=== PATIENT | female | born 1940 | race Caucasian/White ===

== ENCOUNTER 2017-02-05 19:15 | Inpatient (IN) | payer MEDICARE, OTHER ==
[~2017-02-05] VITALS: Ht 165.1 cm; Wt 65.4 kg
[2017-02-05 19:18] VITALS: BP 124/74; PULSE 97; RESP 16; O2SAT 94
[2017-02-05] MEDS ORDERED: 0.9% Sodium Chloride 500 ML IV ONE (19:50)
[2017-02-05 19:55] LABS: BASOPHILS % (AUTO) 0.3 % (0-3)
--- NOTE | 2017-02-05 19:55 | DRSVH ---
PROCEDURE: X-RAY CHEST ONE VIEW, PORTABLE ([id number]) INDICATIONS: shortness of breath, cough TECHNIQUE: One view of the chest was acquired. COMPARISON: None. FINDINGS: Surgical changes and devices: None. Lungs and pleura: No pleural effusions or pneumothorax. Lungs are clear. Mediastinum: Mediastinal contours appear normal. Heart size is normal. Bones and chest wall: No suspicious bony lesions. Overlying soft tissues appear unremarkable. IMPRESSION: Mild hyperexpansion suggestive of COPD. No acute pulmonary process. Dictated by: Cheryl Ko M.D. on 02/05/2017 at 19:53 Approved by: Cheryl Ko M.D. on 02/05/2017 at 19:53
[2017-02-05 19:56] LABS: EOSINOPHILS % (AUTO) 1.2 % (0-5); MONOCYTES % (AUTO) 6.3 % (4-12); Mean Corpuscular Hemoglobin 27.4 pg (27.0-35.0); Mean Corpuscular Volume 83.3 fL (81-100); NEUTROPHILS % (AUTO) 80.3 % (40-74); Platelet Count 56 bil/L (150-400)
[2017-02-05] MEDS ORDERED: Albuterol 2.5 mg/3 mL Inhalation Solution NEB ONE (20:05)
[2017-02-05] MEDS ORDERED: MethylprednisoLONE Sodium Succinate 62.5 mg/mL 2 mL Inj IVPUSH ONE (20:10)
[2017-02-05] MEDS ORDERED: Albuterol-Ipratropium 3 mL Inhalation Solution NEB ONE (20:10)
[2017-02-05] MEDS ORDERED: Piperacillin-Tazo 3.375 Gm Inj 3.375 GM in Dextrose 5% Minibag Plus 50 ML IV ONE (20:10)
[2017-02-05 20:18] VITALS: PULSE 93; RESP 13; O2SAT 96
--- NOTE | 2017-02-05 20:19 | ED.REPORT ---
HPI-Dyspnea / Wheezing Date of Service Feb 05, 2017 ED Provider: Santo Arango PA-C Ailin is a 77-year-old female with a history of memory issues, high blood pressure and hypothyroidism who presents to the emergency department with a chief complaint cough. The patient's daughter reports a one-week history of worsening productive cough, lethargy fatigue, fever, nasal congestion. Fever noted to be 101F at the urgent care prior to arrival. Denies chest pain, palpitations. Denies a history of asthma, COPD. Denies recent hospitalizations. Nursing Notes Stated Complaint: FEVER,COUGH,CONGESTION,SENT BY URGENT CARE Chief Complaint: Respiratory Complaints Nursing Notes Reviewed: Yes Allergies: Coded Allergies: latex (Verified Allergy, Severe, rash and hives, 02/05/17) General Time Seen by MD: 19:34 Chief Complaint Cough Past Medical History Past Medical History Hypothyroid, memory issues, high blood pressure Reports: Hypertension Past Surgical History Unknown Family History Noncontributory Smoking History Never Smoker Social History Pt lives alone at [facility] and has a weekly maid. She recently moved from [place], [place] to be closer to her family. Drug Use: Denies drug use Other Social History: Lives alone Ambulatory Status Independent Review of Systems General: Admits fever, chills, malaise. HEENT: Admits congestion Respiratory: Admits dyspnea, cough, shortness of breath, wheezing. Cardiovascular: Denies chest pain, palpitations. Gastrointestinal: Denies vomiting, diarrhea, abdominal pain. Otherwise as noted in HPI. Physical Exam General: Well appearing, well developed, well nourished, no acute distress. Head: Atraumatic, normocephalic. Eyes: No scleral icterus or injection. No discharge. Vision grossly intact. ENT: Voice clear, hearing grossly intact. Respiratory: Mild tachypnea. Diffuse expiratory wheezes in all adames. Negative rales or rhonchi. Cardiovascular: Regular rate and rhythm. 3/6 systolic murmur most prominent at the left upper sternal border. No pedal edema. Gastrointestinal: Abdomen flat and non-tender without guarding or rebound. Bowel sounds normoactive. Skin: Warm and dry. Neurological: Grossly nonfocal. Psychological: Alert and oriented. Speech appropriate, linear and logical. Behavior appropriate. Initial Vital Signs Vital Signs (First) Date Time Temp Pulse Resp B/P Pulse Ox O2 Delivery O2 Flow Rate FiO2 02/05/17 19:18 37.3 97 16 124/74 94 Room Air 02/05/17 20:18 1 Normal Interpretation & Diagnostics Lab Results Interpretation Result Diagram: 02/05/17193902/05/171939 Test 02/05/17 19:40 White Blood Count 14.8th/mm3 (3.8-10.1) Red Blood Count 4.92mil/mm3 (3.90-5.20) Hemoglobin 13.5g/dL (12.0-15.6) Hematocrit 41.0% (35.0-46.0) Mean Corpuscular Volume 83.3fL (81-100) Mean Corpuscular Hemoglobin 27.4pg (27.0-35.0) Mean Corpuscular Hemoglobin Concent 32.9% (32.0-37.0) Red Cell Distribution Width 16.5% (12.3-15.4) Platelet Count 56bil/L (150-400) Neutrophils (%) (Auto) 80.3% (40-74) Lymphocytes (%) (Auto) 11.6% (14-46) Monocytes (%) (Auto) 6.3% (4-12) Eosinophils (%) (Auto) 1.2% (0-5) Basophils (%) (Auto) 0.3% (0-3) Hematology Comments Platelet Sodium Level 133mEq/L (134-144) Potassium Level 4.5mEq/L (3.5-5.2) Chloride Level 95mEq/L (97-108) Carbon Dioxide Level 25mmol/L (18-29) Blood Urea Nitrogen 13mg/dL (8-27) Creatinine 0.59mg/dL (0.57-1.00) Estimat Glomerular Filtration Rate 141mL/min (>59) Glucose Level 159mg/dL (60-99) Lactic Acid Level 1.2mmol/L (0.4-2.0) Calcium Level 10.2mg/dL (8.5-10.1) Magnesium Level 1.7mg/dL (1.6-2.6) Total Bilirubin 1.9mg/dL (0.0-1.2) Aspartate Amino Transf (AST/SGOT) 19U/L (0-50) Alanine Aminotransferase (ALT/SGPT) 20U/L (0-32) Alkaline Phosphatase 121U/L (25-165) Troponin T < 0.010ug/L (0.0-0.011) Total Protein 7.8g/dL (6.4-8.4) Albumin 4.3g/dL (3.4-5.0) ECG Interpretation ECG Interpretation: Sinus rhythm with a rate of 92 and regular. Probable left atrial enlargement, right bundle branch block. No ischemic changes Time: 19:32 Interpreted by: ED physician (Dr. Morfin) Re-Eval/Medical Decision Med Decision/Clinical Course 77-year-old female with a history of memory issues, hypothyroid, high blood pressure presents emergency Department with worsening productive cough, fever, fatigue over the last week. Febrile to 101F. Denies hospitalizations, is a resident at an assisted living facility. Physical examination reveals an ill-appearing elderly woman, clinically evident wet cough. Diffuse bilateral expiratory wheezes. 3/6 murmur most prominent at the left upper sternal border. Vital signs in triage are normal. O2 saturation is 95% on 1 L of O2. X-rays reveal a COPD pattern with no obvious pneumonia.CBC reveals leukocytosis at 14.8 with left shift. Platelets are low at 56. CMP reveals mild hypochloremia at 95, , hyponatremia 133, hypercalcemia at 10.2 and elevated bilirubin of 1.9. Troponin is negative. Lactic acid is normal. EKG reveals sinus rhythm, left atrial enlargement, right bundle branch block and is negative for ischemic changes. Flu swab performed at urgent care was negative. I discussed the case with who recommends blood cultures, IV steroids, Zosyn to cover hospital acquired pneumonia, DuoNeb 3, admission. Patient feels significant improved after DuoNeb. I discussed the case with Dr. Mitchell, who accepts admission. Patient is transferred to the floor in stable condition. Consultation : Referral / Consult Name: Madonna Mitchell DO Call Returned at: 20:17 Personal Chef: Accepts admit Discharge & Departure Impression: Primary Impression: COPD exacerbation Additional Impression: Thrombocytopenia Disposition: ADMITTED TO HOSPITAL Discharge Condition All VS Reviewed: Yes Condition: Stable Referrals: Sundar Godwin MD (PCP) copies to: Sundar Godwin MD, Seth PA-C Feb 05, 2017 20:19
[2017-02-05 20:32] LABS: Magnesium 1.7 mg/dL (1.6-2.6)
[2017-02-05 20:38] LABS: TROPONIN T < 0.010 ug/L (0.0-0.011)
[2017-02-05 20:45] VITALS: BP 110/51; PULSE 110; RESP 16; O2SAT 95
[2017-02-05] MEDS ORDERED: Alum-Mag Hydrox-Simeth 30 mL Suspension PO PRN ×2 (20:45→21:40)
[2017-02-05] MEDS ORDERED: Ondansetron 2 mg/mL 2 mL Inj IVPUSH PRN (20:45)
[2017-02-05 21:28] VITALS: BP 96/58; PULSE 110; RESP 16; O2SAT 95
[2017-02-05] MEDS ORDERED: Polyethylene Glycol (PEG) 17 Gm Powder PO PRN (21:40)
[2017-02-05] MEDS ORDERED: Albuterol 2.5 mg/3 mL Inhalation Solution NEB PRN (21:40)
--- NOTE | 2017-02-05 22:00 | NUR ---
Patient arrived from ED at 2140 to RM 3011, accompanied by daughter. Patient has baseline memory deficits. Lives at [facility] during weekdays, stays with daughter on weekends. Pt cooperative but anxious and emotional about hospital stay and startles easily when waking. Occasionally asks repetitive questions. Bed alarm on.
[2017-02-05 22:08] VITALS: BP 104/62; PULSE 103; RESP 18; O2SAT 94
--- NOTE | 2017-02-05 22:10 | PCM.HPMED ---
Subjective Date of Service Feb 05, 2017 Primary Provider: Admitting Physician: Madonna Mitchell DO Primary Care Physician: Sundar Godwin MD Attending Physician: Madonna Mitchell DO Chief Complaint: Cough and fever and generalized malaise History of Present Illness: Ailin Gibson is a 77-year-old female with past medical history significant for hypothyroidism, hypertension, hyperlipidemia, and significant secondhand smoke exposure who presents with fever of 101F, productive cough, and generalized malaise. Patient states that over the last week she has developed a cough that has become more productive. She states that sputum is mostly opaque but occasionally is green in color. She is also had increased fatigue and generalized malaise. Today symptoms worsened and she developed a fever of 101 F recorded at urgent care. Urgent care recommended she present to the ED for further evaluation. Patient currently resides at [facility] and lives independently. Fellow residents have had some upper respiratory symptoms but no hospitalizations that she is aware of. She denies any abdominal pain, nausea , vomiting, dysuria, hematuria, diarrhea, headache, chest pain, or dizziness. On presentation to the ED vital signs were 36.4 (patient received Tylenol at urgent care), pulse 60, respiratory rate 16, blood pressure 173/79, and satting 98 % on room air. Chest x-ray was suggestive of COPD with no definitive infiltrate. Influenza swab at urgent care was negative. In the ED patient received 500 mL of normal saline, DuoNeb, Zosyn, and Solu-Medrol 125 mg IV. Review of Systems: Comprehensive review of systems was conducted with the patient and found to be negative except as noted above in HPI. Allergies Coded Allergies: latex (Verified Allergy, Severe, rash and hives, 02/05/17) Home Medications Metoprolol Statin Levothyroxine PMH Hypothyroidism Hypertension Hyperlipidemia Possibly early stages of dementia - not diagnosed by family members state she is more forgetful Surgical History Cholecystectomy Hysterectomy Family History Father - Parkinson's Mother - heart disease Social History Occupation: retired or tech Hx Alcohol Use: No Hx Substance Use: No Hx Tobacco Use: No (significant secondhand smoke exposure) Smoking Status: Never Smoker Living Arrangement: Independent Care Home Exam Vital Signs Vital Sign - Last Date Time Temp Pulse Resp B/P Pulse Ox O2 Delivery O2 Flow Rate FiO2 02/05/17 21:28 110 16 96/58 95 Nasal Cannula 1 02/05/17 19:18 37.3 Exam General: Lethargic elderly woman lying in bed in mild distress. Appropriately interactive when directly questioned. HEENT: Normocephalic, atraumatic. External ears without defect. Pupils equal, round, and reactive to light and accommodation. Anicteric sclerae, moist conjunctivae, and no lid lag. Moist oral mucosa. Neck: Supple with full range of motion. No jugular venous distension. Cardiovascular: Regular rate and rhythm with a 3/6 systolic murmur. Pulmonary: Coarseness greatest in right upper lung field with diffuse wheezing. Abdomen: Bowel tones present. Soft, nontender, nondistended. Extremities: No clubbing, cyanosis, edema, or lymphadenopathy appreciated. Skin: Normal temperature, turgor, and texture; no rash, ulcers, or subcutaneous nodules appreciated. Neurological: Cranial nerves grossly intact. Normal muscle strength, tone, and bulk. Reflexes, coordination, and sensory function within normal limits. No known gait impairment. Psychiatric: Normal mood and affect. Alert and oriented to person, place, and time. Lab and Diagnostics Result Diagram: 02/05/17193902/05/171939 X-Rays, CTs and MRIs X-RAY CHEST ONE VIEW, PORTABLE IMPRESSION: Mild hyperexpansion suggestive of COPD. No acute pulmonary process. Dictated by: Cheryl Ko M.D. on 02/05/2017 at 19:53 Approved by: Cheryl Ko M.D. on 02/05/2017 at 19:53 12-lead ECG Sinus rhythm with heart rate of 92 Right bundle branch block Assessment & Plan Ailin Gibson is a 77-year-old female with past medical history significant for hypothyroidism, hypertension, hyperlipidemia, and significant secondhand smoke exposure who presents with fever of 101F, productive cough, and generalized malaise. Admitted for possible URI versus CAP in the setting of likely COPD although no previous diagnosis. Upper respiratory infection versus community acquired pneumonia, present on admission, active. - Chest x-ray with no definitive infiltrate. Repeat in the morning as physical exam reveals significant coarseness in the right upper lung field. - Zosyn and steroids given in the ED. Steroids discontinued and antibiotics switched to azithromycin and ceftriaxone. - Leukocytosis of 14.8 with a neutrophil predominance. Procalcitonin pending. - Blood and sputum cultures obtained and results pending. - Respiratory PCR panel, strep pneumonia, and legionella ordered and pending. - Supplemental oxygen as needed. - Duonebs as needed for shortness of breath. - Repeat CBC and procalcitonin in the morning. Possible acute COPD exacerbation, presently on admission, active. - Patient has no prior diagnosis of COPD although she has a long history of secondhand smoke exposure. No personal history of tobacco use. Chest x-ray suggestive of COPD. - Supplemental oxygen as needed. - DuoNebs Q4-6H while awake. - Solu-Medrol 125 mg given in the ED. Continue with Prednisone 40mg QD for 4 days. - Albuterol Q2H PRN. - Antibiotics and laboratory workup as above. Thrombocytopenia, present on admission, active. - On admit platelets 56. Labs from 08/19/2016 showed platelet level of 85. - Patient unaware of this condition. No prior records to compare. - Further workup as outpatient. - We will continue to monitor. - DVT prophylaxis with heparin held. Systolic murmur, present on admission, active. - Patient has not had an echocardiogram and was not aware of heart murmur. - As patient's blood pressure has become somewhat tenuous and there might be need for more aggressive fluid resuscitation echocardiogram has been ordered for the morning. Chronic stable conditions Hypothyroidism - Continue home medication: Levothyroxine 100 MCG daily. Hypertension - Hold home Metoprolol at this time as patient's blood pressure is somewhat tenuous. Hyperlipidemia - Atorvastatin held. PRN Medications - Acetaminophen as needed for mild pain/fever/headache - Bowel regimen as needed - Antiemetic as needed Patient is admitted under inpatient status with expected length of stay greater than 2 midnights due to severity of presenting symptoms, risk of adverse event, and complexity of treatment plan. Pain Evaluation: Adequate Pain Control GI Prophylaxis: Not indicated VTE Prophylaxis Indicated: Contraindicated (platelets of 56) VTE Prophylaxis: SCDs VTE Mechanical Devices: Intermittant Pneumatic CD Resuscitation Status: CPR: Attempt Resuscitation Attending Statement The patient was seen and examined together with house staff on 02/05/2017 and I agree with the history, exam and plan as outlined in the note above. SADI NEWMAN DO Feb 05, 2017 22:10 Madonna Mitchell DO Feb 06, 2017 04:27
[2017-02-05] MEDS: 0.9% Sodium Chloride 1,000 ML IV SCH (22:36)
[2017-02-05 22:42] LABS: APPEARANCE,URINE CLEAR (CLEAR,HAZY); COLOR,URINE YELLOW (YELLOW)
[2017-02-05 22:43] LABS: OCCULT BLOOD,URINE TRACE (NEGATIVE); UROBILINOGEN,URINE NORMAL (NORMAL)
[2017-02-06] VITALS (13 sets, daily range): BP systolic 105–125; BP diastolic 58–68; PULSE 85–119; RESP 18–22; O2SAT 93–97
[2017-02-06] MEDS ORDERED: ALBU8.5H2 INHALATION (00:13)
[2017-02-06] MEDS ORDERED: METO-369 PO (00:13)
[2017-02-06] MEDS ORDERED: ATOR20TA PO (00:13)
[2017-02-06] MEDS ORDERED: ASPI-973 PO (00:13)
[2017-02-06] MEDS ORDERED: LEVO100T97 PO (00:13)
[2017-02-06] MEDS ORDERED: LATA2.5D6 OP (00:13)
[2017-02-06] MEDS ORDERED: Heparin 5,000 Unit/mL Inj SUBQ SCH (00:30)
[2017-02-06] MEDS: Albuterol-Ipratropium 3 mL Inhalation Solution NEB SCH ×4 (00:54→11:28)
--- NOTE | 2017-02-06 06:08 | NUR ---
Respiratory Patient states she is feeling better than when she came into the hospital, able to sleep part of the night. Baseline confusion to date and situation, anxious and startles easily. 1L O2/NC, coughing less frequently. Last tylenol given in urgent care. Plan for Echo this AM.
[2017-02-06 06:46] LABS: BASOPHILS % (AUTO) 0 % (0-3); EOSINOPHILS % (AUTO) 0.1 % (0-5); Mean Corpuscular Hemoglobin 27.4 pg (27.0-35.0); Mean Corpuscular Volume 85.7 fL (81-100); NEUTROPHILS % (AUTO) 94.3 % (40-74)
[2017-02-06 06:55] LABS: Platelet Count 27 bil/L (150-400)
[2017-02-06] MEDS: 0.9% Sodium Chloride 1,000 ML IV SCH ×2 (07:25→17:37)
[2017-02-06] MEDS ORDERED: cefTRIAXone Inj 2,000 MG in Dextrose 5% Minibag Plus 50 ML IV SCH (08:30)
[2017-02-06] MEDS ORDERED: Azithromycin Inj 500 MG in Dextrose 5% w/Vial Mate 250 ML IV SCH (08:30)
[2017-02-06] MEDS: predniSONE 20 mg Tablet PO SCH (08:54)
--- NOTE | 2017-02-06 10:04 | NUR ---
confusion pt seems to be confused, talking about how her invented the atom bomb, then goes on to tell this RN that her son was the inventor. This RN spoke with pt's daughter and mentioned that pt was confused, daughter responded with "yeah that sounds like mom" aware of confusion
[2017-02-06] MEDS ORDERED: Glucose 40% Oral Gel 15 Gm Tube PO PRN (10:55)
--- NOTE | 2017-02-06 10:59 | DRSVH ---
[facility] [address] [place] [address] Echocardiogram Report Name: JOCELYN BOBO MStudy Date: 02/06/2017 Height: 65 in Hospital Exam Location: [facility] Weight: 144 lb Gender: Female BSA: 1.7 m2 : 1940 Age: 77 yrs BP: 125/68 mmHg Reason For Study: MURMUR Ordering Physician: Performed By: Charanjit Barger Referring Physician: Tila FRANCES Interpretation Summary The left ventricular cavity is relatively small and left ventricular wall thickness is mildly increased with mild proximal septal thickening but no obvious anatomical outflow tract obstruction. The left ventricle is moderately hyperdynamic with the ejection fraction estimated to be 80-85% without focal wall motion abnormalities. The LVOT velocity is signifcantly elevated at 4.46 m/s, predicting a 80 mmHg gradient but does not appear to be dynamic as the left ventricular outflow velocity with valsalva is only 1.39 m/s. The increased LVOT velocity is likely due to the hyperdynamic function with LVOT crowding due to the mild LVH and tachycardia. Consider beta-maira therapy and avoiding a volume depleted state but clinical correlation is needed. Diastolic function could not be accurately assessed due to tachycardia. The right ventricle is normal in size and function. Right ventricular systolic pressure is estimated to be 30 mmHg plus the clinically estimated CVP which cannot be estimated on this exam since the inferior vena cava was not well visualized but grossly appears normal in size, suggesting the absence of an elevated CVP. The left atrium is moderately dilated. There is mild mitral annular calcification with probable mild to moderate mitral regurgitation although this is difficult to quantitate. Consider reevaluation once heart rate has been better controlled. The aortic valve is slightly calcified but opens well without significant valvular aortic stenosis. The patient was in sinus tachycardia with heart rates between 100-110 bpm during the exam. Procedure: A two-dimensional transthoracic echocardiogram with color flow and Doppler was performed. The study quality was technically difficult. There is no prior echocardiogram noted for this patient. The patient was in sinus tachycardia with heart rates between 100-110 bpm during the exam. Left Ventricle: The left ventricular cavity is small. Left ventricular wall thickness is mildly increased. There is mild proximal septal thickening noted. The LVOT velocity is 4.46 m/s. The left ventricular outflow velocity with valsalva is 1.39. The left ventricle is moderately hyperdynamic. Left ventricular ejection fraction is estimated to be 80-85%. There are no focal wall motion abnormalities. Diastolic function could not be accurately assessed due to tachycardia. Right Ventricle: The right ventricle is normal in size and function. Atria: The left atrium is moderately dilated. Right atrial size is normal. The interatrial septum is intact with no evidence for an atrial septal defect. Mitral Valve: There is mild mitral annular calcification. There is mild to moderate mitral regurgitation. But this is difficult to quantitate. PISA could not be reliably performed due to 'poor color doppler quality'. Aortic Valve: The aortic valve is trileaflet. The aortic valve is slightly calcified. The aortic valve opens well. There is no hemodynamically significant valvular aortic stenosis. No aortic regurgitation is present. Tricuspid Valve: The tricuspid valve is normal in structure and function. There is trace tricuspid regurgitation. Right ventricular systolic pressure is estimated to be 30 mmHg plus the clinically estimated CVP which cannot be estimated on this exam. Pulmonic Valve: The pulmonic valve is not well visualized. There is no other significant valvular heart disease. Great Vessels: The aortic root is normal size. The dimensions of the ascending aorta are normal. The pulmonary artery is normal size. The inferior vena cava was not well visualized. The inferior vena cava appeared normal. Pericardium/ Pleura There is no pericardial effusion. There is no pleural effusion. MMode/2D Measurements & Calculations LVIDd: 3.7 cm LA dimension: 3.6 cm LVIDs: 0.99 cm FS: 73.1 % LA A2 area: 23.3 cm EPSS: 0.35 cm LA A4 area: 18.7 cm LVPWd: 1.3 cm LA length (vol): 4.8 cm LA vol: 77.4 ml LA vol index: 45.0 ml/m IVC diam: 1.9 cm RA long axis: 4.2 cm LVOT diam: 2.1 cm RA area: 12.2 cm AoV Openin.6 cm RA vol: 30.7 ml Ao root diam: 3.3 cm RA : 17.8 ml/m2 Aortic Jxn: 2.9 cm asc Aorta Diam: 3.2 cm Ao Arch Diam (Prox Trans): 2.9 cm LV carrillo. diameter/BSA (cm/m^2): 2.1 LV sys. diameter/BSA (cm/m^2): 0.58 Doppler Measurements & Calculations Ao V2 max: 406.3 cm/sec MV E max dennis: 170.3 cm/sec Ao max P.0 mmHg MV A max dennis: 1.3 cm/sec Ao mean P.4 mmHg MV E/A: 133.8 TR max dennis: 275.2 cm/sec Med Peak E' Dennis: 13.1 cm/sec TR max P.3 mmHg E/E' med: 13.0 PA V2 max: 149.9 cm/sec Pulm A Revs Dur: 0.14 sec PA mean P.5 mmHg PA Accel Time: 0.10 sec MV V2 mean: 102.3 cm/sec Ao V2 mean: 319.6 cm/sec MV mean P.0 mmHg Ao V2 VTI: 89.8 cm MV V2 VTI: 24.4 cm MV dec time: 0.10 sec PA V2 mean: 113.4 cm/sec PA pr(Accel): 31.6 mmHg Reading Physician:10:58 AM
[2017-02-06] MEDS ORDERED: Dextrose 10% 250 ML IV PRN (11:10)
[2017-02-06] MEDS: Insulin LISPRO 300 Unit/3 mL Inj SUBQ SCH ×3 (12:07→22:10)
[2017-02-06] MEDS ORDERED: Albuterol-Ipratropium 3 mL Inhalation Solution NEB PRN (13:35)
--- NOTE | 2017-02-06 13:39 | PCM.PNMED ---
Subjective Date of Service Feb 06, 2017 Subjective Patient confused. She states her son invented the atomic bomb . Confusion at baseline per daughter at bedside. Exam Vital Signs Vital Sign - Last Date Time Temp Pulse Resp B/P Pulse Ox O2 Delivery O2 Flow Rate FiO2 02/06/17 12:55 36.6 109 20 113/65 97 Room Air 02/06/17 07:48 Intake and Output 02/05/17 02/05/17 02/06/17 Cumulative From/Thru 15:00 23:00 07:00 02/05/17 19:18 - 02/06/17 06:52 Intake Total 500 ml 743 ml 1243 ml Balance 500 ml 743 ml 1243 ml Intake Oral 0 ml 0 ml IV Total 500 ml 743 ml 1243 ml # Voids 1 1 Exam General: Lethargic elderly woman lying in bed in mild distress. Appropriately interactive when directly questioned. HEENT: Normocephalic, atraumatic. External ears without defect. Pupils equal, round, and reactive to light and accommodation. Anicteric sclerae, moist conjunctivae, and no lid lag. Moist oral mucosa. Neck: Supple with full range of motion. No jugular venous distension. Cardiovascular: Regular rate and rhythm with a 3/6 systolic murmur. Pulmonary: Coarseness greatest in right upper lung field with diffuse wheezing. Abdomen: Bowel tones present. Soft, nontender, nondistended. Extremities: No clubbing, cyanosis, edema, or lymphadenopathy appreciated. Skin: Normal temperature, turgor, and texture; no rash, ulcers, or subcutaneous nodules appreciated. Neurological: Cranial nerves grossly intact. Normal muscle strength, tone, and bulk. Reflexes, coordination, and sensory function within normal limits. No known gait impairment. Psychiatric: Normal mood and affect. Alert and oriented to person, place, and time. IVs and Medications Medications Reviewed: Medications were reviewed in detail Lab and Diagnostics Result Diagram: 02/06/1728 02/06/17527 X-Rays, CTs and MRIs X-RAY CHEST ONE VIEW, PORTABLE IMPRESSION: Mild hyperexpansion suggestive of COPD. No acute pulmonary process. Dictated by: Cheryl Ko M.D. on 02/05/2017 at 19:53 Approved by: Cheryl Ko M.D. on 02/05/2017 at 19:53 12-lead ECG Sinus rhythm with heart rate of 92 Right bundle branch block Cardiac Echo Impressions ECHO 02/06/17 Interpretation Summary The left ventricular cavity is relatively small and left ventricular wall thickness is mildly increased with mild proximal septal thickening but no obvious anatomical outflow tract obstruction. The left ventricle is moderately hyperdynamic with the ejection fraction estimated to be 80-85% without focal wall motion abnormalities. The LVOT velocity is signifcantly elevated at 4.46 m/s, predicting a 80 mmHg gradient but does not appear to be dynamic as the left ventricular outflow velocity with valsalva is only 1.39 m/s. The increased LVOT velocity is likely due to the hyperdynamic function with LVOT crowding due to the mild LVH and tachycardia. Consider beta-maira therapy and avoiding a volume depleted state but clinical correlation is needed. Diastolic function could not be accurately assessed due to tachycardia. The right ventricle is normal in size and function. Right ventricular systolic pressure is estimated to be 30 mmHg plus the clinically estimated CVP which cannot be estimated on this exam since the inferior vena cava was not well visualized but grossly appears normal in size, suggesting the absence of an elevated CVP. The left atrium is moderately dilated. There is mild mitral annular calcification with probable mild to moderate mitral regurgitation although this is difficult to quantitate. Consider reevaluation once heart rate has been better controlled. The aortic valve is slightly calcified but opens well without significant valvular aortic stenosis. The patient was in sinus tachycardia with heart rates between 100-110 bpm during the exam. Assessment & Plan Ailin Gibson is a 77-year-old female with past medical history significant for hypothyroidism, hypertension, hyperlipidemia, and significant secondhand smoke exposure who presents with fever of 101F, productive cough, and generalized malaise. Admitted for possible URI versus CAP in the setting of likely COPD although no previous diagnosis. #Viral/rhinovirus pneumonia, present on admission, active. - Chest x-ray with no definitive infiltrate. physical exam reveals significant coarseness in the right upper lung field. - Zosyn and steroids given in the ED. antibiotics switched to azithromycin and ceftriaxone initially. Respiratory PCR positive for rhinovirus/enterovirus . Discontinued antibiotics. Continue prednisone 40 mg by mouth daily - Leukocytosis of 14.8 with a neutrophil predominance. Procalcitonin negative - Blood cultures pending - strep pneumonia negative, legionella negative - Supplemental oxygen as needed. - Duonebs as needed for shortness of breath. #Possible acute COPD exacerbation, presently on admission, active. - Patient has no prior diagnosis of COPD although she has a long history of secondhand smoke exposure. No personal history of tobacco use. Chest x-ray suggestive of COPD. - Supplemental oxygen as needed. - DuoNebs Q4-6H while awake. - Solu-Medrol 125 mg given in the ED. Continue with Prednisone 40mg QD for 4 days. - Albuterol Q2H PRN. - Antibiotics and laboratory workup as above. 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 - On admit platelets 56. dropped to 27 today . Labs from 08/19/2016 showed platelet level of 85. 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 Patient, patient's daughter at bedside and other family members also have similar issue per daughter . No further workup - DVT prophylaxis with heparin held. Systolic murmur/hyperdynamic left ventricule, present on admission, active. - Patient has not had an echocardiogram and was not aware of heart murmur. - echo done shows hyperdynamic left ventricle with EF 80-85%, mild septal thickening with no outflow obstruction.BB recommended.resumed home metoprolol Chronic stable conditions Hypothyroidism - Continue home medication: Levothyroxine 100 MCG daily. Hypertension - Hold home Metoprolol at this time as patient's blood pressure is somewhat tenuous. Hyperlipidemia - Atorvastatin held. PRN Medications - Acetaminophen as needed for mild pain/fever/headache - Bowel regimen as needed - Antiemetic as needed Patient is admitted under inpatient status with expected length of stay greater than 2 midnights due to severity of presenting symptoms, risk of adverse event, and complexity of treatment plan. GI Prophylaxis: Not indicated VTE Prophylaxis: SCDs VTE Mechanical Devices: Venous Foot Pump Resuscitation Status: CPR: Attempt Resuscitation Deep Patel MD Feb 06, 2017 13:39 Deep Patel MD Feb 06, 2017 13:39
[2017-02-06] MEDS: MeTOProlol XL 50 mg ER24 Tablet PO SCH (13:46)
--- NOTE | 2017-02-06 14:00 | NUR ---
shaking pt's daughter states that she has noticed that the pt's shaking is getting worse over time. She is aware that the prednisone can cause some shakes but states that even when her mother isn't on prednisone her head shakes.
--- NOTE | 2017-02-06 14:40 | DRSVH ---
PROCEDURE: X-RAY CHEST ONE VIEW, PORTABLE ([id number]) INDICATIONS: SHORT OF BREATH TECHNIQUE: One view of the chest was acquired. COMPARISON: [facility], CR, XR CHEST 1VW (PORTABLE), 02/05/2017, 19:38. FINDINGS: Surgical changes and devices: None. Lungs and pleura: No pleural effusions or pneumothorax. Lungs are clear, and the interstitium is pr ominent, most notably involving the mid left lung. Lung volumes are increased with flattening of the hemidiaphragms suggesting COPD.. Mediastinum: Mediastinal contours appear normal. Heart size is normal. Bones and chest wall: No suspicious bony lesions. Overlying soft tissues appear unremarkable. IMPRESSION: 1. Large lung volumes suggesting COPD. 2. Interstitial prominence and mild edema is suspected. Differential would also include atypical inf ection. Correlate clinically. Dictated by: Epifanio BUSTOS Interpreted: Ric Schaeffer MD on 02/06/2017 at 9:39 Approved by: Ric Schaeffer M.D. on 02/06/2017 at 14:38
--- NOTE | 2017-02-06 16:11 | NUR ---
emotional pt is teary eyed in the room. She states that she was upset that she might have done something wrong. This RN reminded pt that she was here in a safe place and that hospital staff was here to take care of her and to keep her safe. This RN asked that if she needed anything or any assistance to call so we could help, pt agrees to call when she needs assistance.
--- NOTE | 2017-02-06 16:57 | NUR ---
Social Work-initial assessment/ readiness for discharge/ multidisciplinary rounds: Data:See initial assessment. Pt is a 77 y/o female who was admitted on 02/05/17 for COPD per H&P. Pt's insurance is [employer] and PCP is Sundar Godwin MD. EMR reviewed. ROSANNA placed a call to pt's daughter Antonia to discuss discharge planning,SW role explained. Pt resides at [facility] where she remains independent with ADls. Pt stays with her daughter on the weekends. Pt does not drive and does not use any DME. Pt has no HH or SNF history. Pt has no intermediate designer care insurance or VA benefits. SW discussed DPOA/ advanced directive, daughter confirms she has completed this, SW encouraged a copy to be brought in. Daughter confirms she will provide transport home. No concerns noted regarding pt's capacity for self care from MD multi township assessor. Discharge planning checklist provided, SW encouraged them to call with any questions. No anticipated discharge needs. SW will continue to follow if needs arise. Assessment:pt who is independent at baseline. Plan:Pt to discharge back to [facility] when medically stable via POV. No anticipated discharge needs. SW will continue to follow if needs arise. LANCE Shaver Addendum: 02/06/17 at 1703 by SAMMIE GOEL SS Amended: Links added.
--- NOTE | 2017-02-06 22:48 | NUR ---
Fall Risk Pt is confused. Does not use call light when up OOB. Pt up OOB with SARAH alarm going off. Unsteady on feet I: Requested sitter due to high fall risk E: Cont to watch closely. 2 side rails up. Frequent re orienting to time and place
[2017-02-07] MEDS: 0.9% Sodium Chloride 1,000 ML IV SCH ×2 (01:48→11:40)
[2017-02-07 02:33] VITALS: BP 118/66; PULSE 82; RESP 18; O2SAT 92
[2017-02-07 05:06] VITALS: PULSE 73
[2017-02-07 06:26] VITALS: BP 114/83; PULSE 80; RESP 17; O2SAT 92
[2017-02-07] MEDS: Insulin LISPRO 300 Unit/3 mL Inj SUBQ SCH ×2 (07:37→11:40)
[2017-02-07] MEDS: MeTOProlol XL 50 mg ER24 Tablet PO SCH (07:38)
[2017-02-07] MEDS: predniSONE 20 mg Tablet PO SCH (07:38)
[2017-02-07 08:00] VITALS: PULSE 78
[2017-02-07 08:40] LABS: BASOPHILS % (AUTO) 0 % (0-3); EOSINOPHILS % (AUTO) 0 % (0-5); MONOCYTES % (AUTO) 6.2 % (4-12); Mean Corpuscular Hemoglobin 27.8 pg (27.0-35.0); Mean Corpuscular Volume 85.5 fL (81-100); NEUTROPHILS % (AUTO) 83.4 % (40-74)
[2017-02-07 08:59] LABS: Platelet Count 30 bil/L (150-400)
[2017-02-07 09:14] LABS: Magnesium 1.8 mg/dL (1.6-2.6)
[2017-02-07 09:39] VITALS: BP 118/64; PULSE 78; RESP 18; O2SAT 94
--- NOTE | 2017-02-07 10:08 | PCM.DIMED ---
Discharge Instructions Date of Service Feb 07, 2017 Dates of Hospitalization Feb 05, 2017 at 21:03 Discharge Diagnosis Discharge Diagnosis #Viral/rhinovirus pneumonia, present on admission, active. #Possible undiagnosed underlying COPD , presently on admission, active. 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 #Systolic murmur/hyperdynamic left ventricule, present on admission, active. #Hypothyroidism #Hypertension #Hyperlipidemia Patient Instructions Patient Instructions # You were hospitalized due to viral pneumonia . Please take prednisone 40 mg daily for 3 daily . # Based on chest x-ray and clinical findings it seems you may have undiagnosed COPD. Please get pulmonary function test with your primary doctor once this acute pneumonia resolves. Follow-up with PCP in: 1 week (PCP ) Deep Patel MD Feb 07, 2017 10:08
[2017-02-07] MEDS ORDERED: PRED-508 PO (10:29)
--- NOTE | 2017-02-07 11:56 | NUR ---
DISCHARGE paperwork reviewed with patient and daughter, no questions at this time. Hard copy of RX given, tele and IV discontinued. pt denies pain/CP/SOB/distress. pt and daughter thank the hospital staff for our kindness and compassion. pt transported to private vehicle via W/C to return to [facility] and private home.
--- NOTE | 2017-02-07 15:42 | NUR ---
Social Work: Discharge / Multidisciplinary Rounds Data & Assessment: EMR reviewed. Patient is on day 2 of hospitalization for COPD exacerbation per H&P. Patient was discussed in morning rounds. No concerns were noted by staff or MD. Patient has been deemed medically stable for discharge today per MD. Patient will return to her [facility]. Transportation will be provided by daughter. Patient has no needs at this time. Plan: Patient will return to [facility]. Patient has been cleared to discharge today by MD. Transportation will be provided by daughter. Patient has no additional needs at this time. LANCE Jimenez
--- NOTE | 2017-02-07 17:17 | PCM.DC.MED ---
Discharge Summary Date of Service Feb 07, 2017 Dates of Hospitalization Date of Hospital Admission Feb 05, 2017 at 21:03 Date of Discharge: Feb 07, 2017 Providers: Admitting Physician: Madonna Mitchell DO Primary Care Physician: Sundar Godwin MD Attending Physician: Deep Jackson MD Diagnosis at Time of Discharge Diagnosis at Time of Discharge #Viral/rhinovirus pneumonia, present on admission, active. #Possible undiagnosed underlying COPD , presently on admission, active. 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 #Systolic murmur/hyperdynamic left ventricule, present on admission, active. #Hypothyroidism #Hypertension #Hyperlipidemia Procedures XRay, CTs & MRIs X-RAY CHEST ONE VIEW, PORTABLE IMPRESSION: Mild hyperexpansion suggestive of COPD. No acute pulmonary process. Dictated by: Cheryl Ko M.D. on 02/05/2017 at 19:53 Approved by: Cheryl Ko M.D. on 02/05/2017 at 19:53 ECG 12 Lead Sinus rhythm with heart rate of 92 Right bundle branch block Cardiac Echo Impression ECHO 02/06/17 Interpretation Summary The left ventricular cavity is relatively small and left ventricular wall thickness is mildly increased with mild proximal septal thickening but no obvious anatomical outflow tract obstruction. The left ventricle is moderately hyperdynamic with the ejection fraction estimated to be 80-85% without focal wall motion abnormalities. The LVOT velocity is signifcantly elevated at 4.46 m/s, predicting a 80 mmHg gradient but does not appear to be dynamic as the left ventricular outflow velocity with valsalva is only 1.39 m/s. The increased LVOT velocity is likely due to the hyperdynamic function with LVOT crowding due to the mild LVH and tachycardia. Consider beta-maira therapy and avoiding a volume depleted state but clinical correlation is needed. Diastolic function could not be accurately assessed due to tachycardia. The right ventricle is normal in size and function. Right ventricular systolic pressure is estimated to be 30 mmHg plus the clinically estimated CVP which cannot be estimated on this exam since the inferior vena cava was not well visualized but grossly appears normal in size, suggesting the absence of an elevated CVP. The left atrium is moderately dilated. There is mild mitral annular calcification with probable mild to moderate mitral regurgitation although this is difficult to quantitate. Consider reevaluation once heart rate has been better controlled. The aortic valve is slightly calcified but opens well without significant valvular aortic stenosis. The patient was in sinus tachycardia with heart rates between 100-110 bpm during the exam. Brief History per HPI Ailin Gibson is a 77-year-old female with past medical history significant for hypothyroidism, hypertension, hyperlipidemia, and significant secondhand smoke exposure who presents with fever of 101F, productive cough, and generalized malaise. Patient states that over the last week she has developed a cough that has become more productive. She states that sputum is mostly opaque but occasionally is green in color. She is also had increased fatigue and generalized malaise. Today symptoms worsened and she developed a fever of 101 F recorded at urgent care. Urgent care recommended she present to the ED for further evaluation. Patient currently resides at [facility] and lives independently. Fellow residents have had some upper respiratory symptoms but no hospitalizations that she is aware of. She denies any abdominal pain, nausea , vomiting, dysuria, hematuria, diarrhea, headache, chest pain, or dizziness. On presentation to the ED vital signs were 36.4 (patient received Tylenol at urgent care), pulse 60, respiratory rate 16, blood pressure 173/79, and satting 98 % on room air. Chest x-ray was suggestive of COPD with no definitive infiltrate. Influenza swab at urgent care was negative. In the ED patient received 500 mL of normal saline, DuoNeb, Zosyn, and Solu-Medrol 125 mg IV. Hospital Course Ailin Gibson is a 77-year-old female with past medical history significant for hypothyroidism, hypertension, hyperlipidemia, and significant secondhand smoke exposure who presents with fever of 101F, productive cough, and generalized malaise. Admitted for possible URI versus CAP in the setting of likely COPD although no previous diagnosis. #Viral/rhinovirus pneumonia, present on admission, active. - Chest x-ray with no definitive infiltrate. physical exam reveals significant coarseness in the right upper lung field. - Zosyn and steroids given in the ED. antibiotics switched to azithromycin and ceftriaxone initially. Respiratory PCR positive for rhinovirus/enterovirus . Discontinued antibiotics. Continue prednisone 40 mg by mouth daily to complete 5 days - Leukocytosis of 14.8 with a neutrophil predominance. Procalcitonin negative, Blood cultures negative, strep pneumonia negative, legionella negative - Proair prn for wheezing #Possible undiagnosed underlying COPD , presently on admission, active. - Patient has no prior diagnosis of COPD although she has a long history of secondhand smoke exposure. No personal history of tobacco use. Chest x-ray suggestive of COPD. - Solu-Medrol 125 mg given in the ED. Continue with Prednisone 40mg QD for 3 more days. 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 - On admit platelets 56. dropped to 27 today . Labs from 08/19/2016 showed platelet level of 85. 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 Patient, patient's daughter at bedside and other family members also have similar issue per daughter . No further workup - DVT prophylaxis with heparin held. Systolic murmur/hyperdynamic left ventricule, present on admission, active. - Patient has not had an echocardiogram and was not aware of heart murmur. - echo done shows hyperdynamic left ventricle with EF 80-85%, mild septal thickening with no outflow obstruction.BB recommended.resumed home metoprolol Chronic stable conditions Hypothyroidism - Continue home medication: Levothyroxine 100 MCG daily. low TSH but FT4 WNL Hypertension - resume home Metoprolol at this time as patient's blood pressure is somewhat tenuous. Hyperlipidemia - resume Atorvastatin discharged home condition stable Exam Vital Signs (Last) Date Time Temp Pulse Resp B/P Pulse Ox O2 Delivery O2 Flow Rate FiO2 02/07/17 10:02 Supplement Oxygen 02/07/17 09:39 36.6 78 18 118/64 94 02/06/17 07:48 Exam General: Lethargic elderly woman lying in bed in mild distress. Appropriately interactive when directly questioned. HEENT: Normocephalic, atraumatic. External ears without defect. Pupils equal, round, and reactive to light and accommodation. Anicteric sclerae, moist conjunctivae, and no lid lag. Moist oral mucosa. Neck: Supple with full range of motion. No jugular venous distension. Cardiovascular: Regular rate and rhythm with a 3/6 systolic murmur. Pulmonary: Coarseness greatest in right upper lung field with diffuse wheezing. Abdomen: Bowel tones present. Soft, nontender, nondistended. Extremities: No clubbing, cyanosis, edema, or lymphadenopathy appreciated. Skin: Normal temperature, turgor, and texture; no rash, ulcers, or subcutaneous nodules appreciated. Neurological: Cranial nerves grossly intact. Normal muscle strength, tone, and bulk. Reflexes, coordination, and sensory function within normal limits. No known gait impairment. Psychiatric: Normal mood and affect. Alert and oriented to person, place, and time. Test 02/05/17 00:00 02/05/17 19:40 02/05/17 21:58 02/05/17 22:35 Urine Legionella pneumophilia Ag Negative (Negative) Hematology Comments Platelet Lactic Acid Level 1.2mmol/L (0.4-2.0) Troponin T < 0.010ug/L (0.0-0.011) Urine Color Yellow (YELLOW) Urine Appearance Clear (CLEAR,HAZY) Urine pH 7.0 (5.0-8.0) Urine Specific [place] 1.016 (1.003-1.035) Urine Protein Negativemg/dL (NEG,TRACE) Urine Glucose (UA) Negativemg/dL (NEGATIVE) Urine Ketones Negativemg/dL (NEGATIVE) Urine Occult Blood Trace (NEGATIVE) Urine Nitrite Negative (NEGATIVE) Urine Bilirubin Negative (NEGATIVE) Urine Urobilinogen Normalmg/dL (NORMAL) Urine Leukocyte Esterase Negative (NEGATIVE) Urine RBC 3-10/hpf (0-2) Urine WBC 0-5/hpf (0-5) Urine Epithelial Cells Few/hpf (NONE-MOD) Urine Crystals None seen (NONE SEEN) Urine Bacteria Few/hpf (NONE-FEW) Urine Hyaline Casts None/lpf (NONE) Urine Granular Casts None seen (NONE SEEN) Urine Waxy Casts None seen (NONE SEEN) Urine Red Blood Cell Casts Rare (NONE SEEN) Urine White Blood Cell Casts None seen (NONE SEEN) Urine Mucus Present (None Seen) Urine Trichomonas None seen (NONE SEEN) Urine Yeast None (NONE SEEN) Urinalysis Comment None Urine Culture Reflexed Not indicated Hemoglobin A1c 7.1% (4.8-5.6) Test 02/07/17 08:24 White Blood Count 23.0th/mm3 (3.8-10.1) Red Blood Count 3.99mil/mm3 (3.90-5.20) Hemoglobin 11.1g/dL (12.0-15.6) Hematocrit 34.1% (35.0-46.0) Mean Corpuscular Volume 85.5fL (81-100) Mean Corpuscular Hemoglobin 27.8pg (27.0-35.0) Mean Corpuscular Hemoglobin Concent 32.6% (32.0-37.0) Red Cell Distribution Width 16.5% (12.3-15.4) Platelet Count 30bil/L (150-400) Neutrophils (%) (Auto) 83.4% (40-74) Lymphocytes (%) (Auto) 10.1% (14-46) Monocytes (%) (Auto) 6.2% (4-12) Eosinophils (%) (Auto) 0% (0-5) Basophils (%) (Auto) 0% (0-3) Sodium Level 138mEq/L (134-144) Potassium Level 4.8mEq/L (3.5-5.2) Chloride Level 102mEq/L (97-108) Carbon Dioxide Level 24mmol/L (18-29) Blood Urea Nitrogen 19mg/dL (8-27) Creatinine 0.66mg/dL (0.57-1.00) Estimat Glomerular Filtration Rate 124mL/min (>59) Glucose Level 178mg/dL (60-99) Calcium Level 9.4mg/dL (8.5-10.1) Magnesium Level 1.8mg/dL (1.6-2.6) Total Bilirubin 0.6mg/dL (0.0-1.2) Aspartate Amino Transf (AST/SGOT) 27U/L (0-50) Alanine Aminotransferase (ALT/SGPT) 21U/L (0-32) Alkaline Phosphatase 96U/L (25-165) Total Protein 6.1g/dL (6.4-8.4) Albumin 3.6g/dL (3.4-5.0) Procalcitonin 0.12ng/mL (0.00-0.08) Thyroid Stimulating Hormone (TSH) 0.013uIU/mL (0.450-4.500) Free Thyroxine 1.61ng/dL (0.82-1.77) Discharge Medications Discharge Medications Aspirin (Aspirin) 81 Mg Tablet 81 MG PO DAILY (Reported) Atorvastatin (Lipitor) 20 Mg Tablet 20 MG PO DAILY (Reported) Latanoprost (Latanoprost) 2.5 Ml Drops 1 GTT OP HS (Reported) Levothyroxine (Synthroid) 100 Mcg Tablet 100 MCG PO DAILY (Reported) Metoprolol Succinate ER (Metoprolol Succinate ER) 50 Mg Tab.er.24h 25 PO DAILY ( Reported) Prednisone (Deltasone) 20 Mg Tablet 40 MG PO DAILY Prescribed by: DEEP JACKSON MD As needed Albuterol HFA (Proair HFA) 8.5 Gm Hfa.aer.ad 2 PUFFS INHALATION Q4H PRN PRN For Wheezing (Reported) Followup Plan Disposition: home Patient Instructions # You were hospitalized due to viral pneumonia . Please take prednisone 40 mg daily for 3 daily . # Based on chest x-ray and clinical findings it seems you may have undiagnosed COPD. Please get pulmonary function test with your primary doctor once this acute pneumonia resolves. Follow-up with PCP in: 1 week (PCP ) Time spent 35 minutes coordinating discharge ,answered all questions to daughter Deep Jackson MD Feb 07, 2017 17:17
== END 2017-02-07 12:44 | disposition home or self-care (01) | DRG 194 ==
LOC: SED 19:15 → MPC 21:03
PROVIDERS: ADMIT Internal Medicine; ATTEND Internal Medicine
DX: J12.9 Viral pneumonia, unspecified (principal); J44.1 Chronic obstructive pulmonary disease with (acute) exacerbation; D72.0 Genetic anomalies of leukocytes; E03.9 Hypothyroidism, unspecified; I10 Essential (primary) hypertension; E78.5 Hyperlipidemia, unspecified; Z77.22 Contact with and (suspected) exposure to environmental tobacco smoke (acute) (chronic); R01.1 Cardiac murmur, unspecified; Z79.82 Long term (current) use of aspirin; Z79.51 Long term (current) use of inhaled steroids